=== PATIENT | female | born 1970 | race Caucasian/White ===

== ENCOUNTER → 2020-09-29 | Emergency (ER) | payer MEDICAID, MEDICARE ==
[~2020-09-29] VITALS: Ht 162.6 cm; Wt 81.3 kg
[~2020-09-29] MED LIST: AMLO-186 PO; BUDE10.22 IH; CELE100C PO; CEPH500C PO; CEPHALEXIN 250 MG CAPSULE PO ONE; CYCL5TAB PO; DICY20TA3 PO; DIPH,PERTUSS(ACELL),TET VAC/PF 0.5 ML SYRINGE. VAX IM ONE; HYDR-2155 PO; IBUP-1390 PO; IPRA14.7 IH; LIDOCAINE/EPI/TETRACAINE TOPICAL GEL 3 ML. TP ONE; LOSA25TA11 PO; oxyCODONE/APAP 5/325 1 TAB TABLET PO ONE
[2020-09-29 20:40] VITALS: BP 161/93
--- NOTE | 2020-09-29 21:16 | PHYS DOC ---
Past History Past Medical History: COPD, Hypertension, Migraines Past Surgical History: Appendectomy, Cholecystectomy, Hysterectomy Smoking: Less than 1pk/day Alcohol Use: None Drug Use: None Adult General Chief Complaint Chief Complaint: FINGER INJURY HPI HPI Patient is a 50-year-old female who presents with a chief complaint of laceration to the left thumb. States she was cutting a piece of wood earlier with a small ax, slipped and hit her left thumb. States she is not up-to-date on her tetanus vaccination. Denies any other injuries. States it does hurt, 6 out of 10, sharp in nature. Review of Systems Review of Systems Review of systems otherwise unremarkable except noted in HPI Allergies Allergies Allergies Coded Allergies Type Severity Reaction Last Updated Verified No Known Drug Allergies 09/29/20 No Physical Exam Physical Exam Constitutional: Well developed, well nourished, no acute distress, non-toxic appearance. [] Cardiovascular:Heart rate regular rhythm, no murmur [] Lungs & Thorax: No respiratory distress Extremities: Patient has a 4 cm linear laceration on the left starting just pro ximal to the DIP on the lateral side. Neurovascular exam intact. Hemostasis achieved. Neurologic: Alert and oriented X 3, no focal deficits noted. [] Psychologic: Affect normal, judgement normal, mood normal. [] Current Patient Data Vital Signs Vital Signs Date Time Temp Pulse Resp B/P (MAP) Pulse Ox O2 Delivery O2 Flow Rate FiO2 09/29/20 20:40 98.4 106 18 161/93 (115) 99 Room Air EKG EKG [] Radiology/Procedures Radiology/Procedures Wound cleaned with sterile water and hydrogen peroxide. L ET placed for topical anesthesia. 5 sutures placed of 6-0 Ethilon. Patient tolerated procedure well. Cleaned wound again. Placed in thumb splint and bandage. [] Heart Score C/O Chest Pain: No Risk Factors: Risk Factors: DM, Current or recent (<one month) smoker, HTN, HLP, family history of CAD, obesity. Risk Scores: Risk Factors: DM, Current or recent (<one month) smoker, HTN, HLP, family history of CAD, obesity. Course & Med Decision Making Course & Med Decision Making Patient is a 50-year-old female who presents with a thumb laceration Vital signs not concerning. Physical exam noted above. Tetanus updated. Given pain medication. Started on antibiotics in the ED. Wound washed extensively with sterile water. L ET placed for anesthesia. Repaired with suture. Patient tolerated well. Sent patient home with antibiotic course. Advised on pain regimen at home. Advised to follow-up with primary care in 5 to 7 days for a wound check and suture removal. Gave return precautions to the ED. Patient grateful, verbalized understanding and agreed with plan of discharge. [] Dragon Disclaimer Dragon Disclaimer This electronic medical record was generated, in whole or in part, using a voice recognition dictation system. Departure Departure: Impression: Primary Impression: Thumb laceration Disposition: HOME / SELF CARE / HOMELESS Condition: GOOD Referrals: PCP,ATA (PCP) NORMA HOUSE MD Patient Instructions: Laceration Care, Adult Additional Instructions: Please read all the attached information very carefully. Please take your antibiotics as prescribed. Please follow-up with your primary care physician as discussed in 5 to 7 days for a wound check and suture removal. You can use Tylenol, ibuprofen and ice at home as needed for pain control. Please keep the area clean, dry and bandaged as discussed. Please come back to the emergency department immediately with new or concerning symptoms. Scripts Cephalexin (CEPHALEXIN) 500 Mg Capsule 1 CAP PO TID for laceration for 5 Days, #15 CAP Prov: MARTHA HILL MD 09/29/20 MARTHA HILL MD September 29, 2020 21:16
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
== END | disposition home or self-care (01) ==
LOC: ER 20:34
DX: S61.012A Laceration without foreign body of left thumb without damage to nail, initial encounter (principal); J44.9 Chronic obstructive pulmonary disease, unspecified; I10 Essential (primary) hypertension; Z90.49 Acquired absence of other specified parts of digestive tract; Z90.710 Acquired absence of both cervix and uterus; W26.8XXA Contact with other sharp object(s), not elsewhere classified, initial encounter; Y93.89 Activity, other specified; Y92.89 Other specified places as the place of occurrence of the external cause; Y99.8 Other external cause status
CPT/HCPCS: 12002; 73130; 90471; 90715; 99283-25